=== PATIENT | female | born 1995 | race Hispanic/Latino ===

== ENCOUNTER 2020-07-05 15:20 | Emergency (ER) ==
[2020-07-05] MEDS ORDERED: Cyclobenzaprine 10 MG TAB ONE (15:57)
[2020-07-05] MEDS ORDERED: Acetaminophen 325 MG TAB ONE (15:57)
== END 2020-07-05 16:25 | disposition home or self-care (01) ==
LOC: ERS 15:20
DX: S39.012A Strain of muscle, fascia and tendon of lower back, initial encounter (principal)
CPT/HCPCS: 99283

== ENCOUNTER 2020-07-06 22:22 | Emergency (ER) | payer SELFPAY ==
[2020-07-06 23:43] LABS: Pregnancy Test - Urine (BHCG) Negative (Negative); Pregu Control Background? CLEAR/WHITE (CLR/WHITE); Pregu Control Bar Appear? YES (CONTROL BAR)
[2020-07-06 23:44] LABS: Bacteria/HPF 3+ HPF (None Seen); Bilirubin Negative (Negative); Blood, Urine 2+ (Negative); Clarity Clear (Clear); Glucose, Urine (Dipstick) Normal (Negative); Ketone, Urine 10 mg/dL (Negative); Leukocyte 25 Leu/uL (Negative); Nitrite Negative (Negative); Protein, Urine (Dipstick) 20 mg/dL (Neg-Trace); RBC/HPF 0-3 HPF (0-3); Specific Gravity, Urine 1.033 (1.002-1.036); Urobilinogen Normal mg/dL (Less than 2); pH, Urine 5.5 (5.0-9.0)
[2020-07-06] MEDS ORDERED: Ketorolac Tromethamine 30 MG/ML VIAL ONE (23:44)
[2020-07-06 23:45] LABS: Specific Gravity 1.033 (1.002-1.036)
== END 2020-07-06 23:59 | disposition home or self-care (01) ==
LOC: ERS 22:22
DX: M54.5 Low back pain (principal)
CPT/HCPCS: 81003; 81015; 81025; 96372; 99283; J1885

== ENCOUNTER 2022-04-06 21:33 | Emergency (ER) | payer SELFPAY ==
[2022-04-06 22:09] LABS: Bacteria/HPF 2+ HPF (None Seen); Bilirubin Negative (Negative); Blood, Urine Negative (Negative); Clarity Clear (Clear); Glucose, Urine (Dipstick) Normal (Negative); Ketone, Urine Negative (Negative); Leukocyte 250 Leu/uL (Negative); Nitrite Negative (Negative); Protein, Urine (Dipstick) Negative (Neg-Trace); RBC/HPF 0-3 HPF (0-3); Specific Gravity, Urine 1.033 (1.002-1.036); Urobilinogen Normal mg/dL (Less than 2); WBC/HPF 21-50 HPF (0-3); pH, Urine 5.5 (5.0-9.0)
== END 2022-04-06 22:58 | disposition home or self-care (01) ==
LOC: ERS 21:33
DX: K59.00 Constipation, unspecified (principal)
CPT/HCPCS: 74018; 81003; 81015

== ENCOUNTER 2022-11-15 01:28 | Emergency (ER) | payer OTHER, SELFPAY ==
[2022-11-15 02:11] LABS: #Basophils 0.1 thou/uL (0.0-0.2); #Monocytes 1.1 thou/uL (0.11-0.59); #Neutrophils 9.7 thou/uL (1.40-6.50); %Basophils 0.4 % (0.0-1.0); %Eosinophils 0.1 % (0.0-10.0); %Lymphocytes 15.9 % (21.0-51.0); %Monocytes 8.2 % (0.0-10.0); %Neutrophils 75.2 % (42.0-75.0); Mean Corpuscular HGB CONC 31.9 g/dL (32.0-36.0); Mean Corpuscular Hemoglobin 27.1 pg (27.0-31.0); Mean Corpuscular Volume 85.1 fl (78.0-98.0); Mean Platelet Volume 11.2 fL (7.4-10.4); Platelet Count 316 10x3/uL (130-400); RBC Distribution Width 15.3 % (11.5-14.5); Red Blood Cell (RBC) Count 4.42 mill/uL (4.20-5.40); White Blood Cell (WBC) Count 12.9 10x3/uL (4.8-10.8)
[2022-11-15 02:40] LABS: ALT (SGPT) 49 U/L (8-55); AST (SGOT) 35 U/L (5-34); Albumin 4.2 g/dL (3.5-5.0); Alkaline Phosphatase 62 U/L (40-110); Anion Gap 11 mmol/L (10-20); BUN (Urea Nitrogen) 7 mg/dL (7.0-18.7); Bilirubin, Total 0.9 mg/dL (0.2-1.2); Calc. Creatinine Clearance 0 mL/min (70-130); Calcium 9.6 mg/dL (7.8-10.44); Carbon Dioxide 26 mmol/L (22-29); Chloride 98 mmol/L (98-107); Estimated GFR 114; Globulin 3.8 g/dL (2.4-3.5); Glucose 100 mg/dL (70-105); Lipase 5 U/L (8-78); Potassium 3.4 mmol/L (3.5-5.1); Sodium 132 mmol/L (136-145)
[2022-11-15] MEDS ORDERED: Ondansetron ODT 4 MG TAB ONE ×2 (02:44→02:46)
[2022-11-15] MEDS ORDERED: fentaNYL 50 mcg/mL 1 mL Vial ONE ×2 (04:06→06:27)
[2022-11-15] MEDS ORDERED: Ketorolac Tromethamine 30 MG/ML VIAL ONE (04:06)
[2022-11-15] MEDS ORDERED: Iopamidol-370 76% 500 ML MDV (1 ML CHARGE) ONE (09:15)
== END 2022-11-15 06:34 | disposition home or self-care (01) ==
LOC: ERS 01:28
DX: G89.18 Other acute postprocedural pain (principal); D72.829 Elevated white blood cell count, unspecified
CPT/HCPCS: 36415; 71275; 74177; 80053; 83690; 84484; 85025; 93005; J1885; J3010; Q0162

== ENCOUNTER 2022-11-15 08:40 | Emergency (ER) | payer OTHER, SELFPAY ==
[2022-11-15 09:49] LABS: ALT (SGPT) 54 U/L (8-55); AST (SGOT) 40 U/L (5-34); Alkaline Phosphatase 63 U/L (40-110); Anion Gap 15 mmol/L (10-20); BUN (Urea Nitrogen) 9 mg/dL (7.0-18.7); Bilirubin, Total 0.9 mg/dL (0.2-1.2); Calc. Creatinine Clearance 0 mL/min (70-130); Calcium 9.3 mg/dL (7.8-10.44); Carbon Dioxide 23 mmol/L (22-29); Chloride 101 mmol/L (98-107); Estimated GFR 112; Globulin 3.2 g/dL (2.4-3.5); Glucose 100 mg/dL (70-105); Potassium 3.8 mmol/L (3.5-5.1); Protein, Total 7.2 g/dL (6.0-8.3); Sodium 135 mmol/L (136-145)
[2022-11-15] MEDS ORDERED: Morphine 4 MG/ML VIAL ONE (09:50)
== END 2022-11-15 10:32 | disposition home or self-care (01) ==
LOC: ERS 08:40
DX: G89.18 Other acute postprocedural pain (principal)
CPT/HCPCS: 36415; 71275; 74177; 80053; 83690; 84484; 85025; 93005; 96374; 96375; 96376; J1885; J2270; J3010; Q0162; Q9967